=== PATIENT | female | born 1980 | race Two or more races ===

== ENCOUNTER 2019-06-11 02:06 | Emergency (ER) | payer OTHER ==
[2019-06-11 02:09] VITALS: BMI 36.3
--- NOTE | 2019-06-11 02:16 | PDOC ---
History of Present Illness - General Chief Complaint: Diarrhea Stated Complaint: ABD PAIN - History of Present Illness Initial Comments: The pt is a 38F s/p 7 days ago who presents for evaluation of several hours epigastric abdominal pain w/ associated diarrhea and nausea. She reports epigastric pain that is achy/sharp, radiated to the rest of her abdomen, is constant, and not exacerbated or alleviated by anything she can identify. She reports several episodes of NB diarrhea. Endorses leg swelling that has been present since labor. Endorses vaginal discharge since delivery that has been improving. Denies COLE, vision changes, fevers, dysuria, hematuria, or changes in sensation. She reports a history of HTN during for which she has not taken meds. PMH: Asthma SH: Denies x3 06/11/19 02:50 Past History - Past Medical History Allergies/Adverse Reactions: Allergies Allergy/AdvReac Type Severity Reaction Status Date / Time Sulfa (Sulfonamide Allergy Verified 06/11/19 02:09 Antibiotics) Asthma: Yes COPD: No - Psycho Social/Smoking Cessation Hx Smoking History: Never smoked Review of Systems - Review of Systems Able to Perform ROS?: Yes Comments:: GENERAL/CONSTITUTIONAL: No fever or chills. No weakness HEAD, EYES, EARS, NOSE AND THROAT: No change in vision. No change in hearing. No sore throat CARDIOVASCULAR: No chest pain or shortness of breath RESPIRATORY: Denies cough, hemoptysis GASTROINTESTINAL: per HPI GENITOURINARY: No dysuria, frequency, or change in urination MUSCULOSKELETAL: No joint or muscle swelling or pain. No neck or back pain SKIN: No rash NEUROLOGIC: No headache, vertigo, loss of consciousness, or change in strength/sensation ENDOCRINE: No increased thirst. No abnormal weight change HEMATOLOGIC/LYMPHATIC: No anemia, easy bleeding, or history of blood clots ALLERGIC/IMMUNOLOGIC: No hives or skin allergy 06/11/19 02:15 Is the patient limited Chinese proficient: No *Physical Exam - Vital Signs Last Vital Signs Temp Pulse Resp BP Pulse Ox 98.3 F 86 18 162/81 100 06/11/19 02:07 06/11/19 02:07 06/11/19 02:07 06/11/19 02:07 06/11/19 02:07 - Physical Exam GENERAL: Awake, alert, and oriented to person/place/time HEAD: No signs of trauma, normocephalic, atraumatic EYES: PERRLA, EOMI, sclera anicteric, conjunctiva clear ENT: Hearing grossly normal, nares patent, oropharynx clear without exudates. Moist mucosa LUNGS: No distress, speaks in full sentences, clear to auscultation bilaterally HEART: Regular rate and rhythm, normal S1 and S2, no murmurs appreciated, peripheral pulses normal and equal bilaterally ABDOMEN: Soft, protuberant, epigastric/generalized TTP w/ guarding w/o rebound, normoactive bowel sounds EXTREMITIES: Moves all extremities independently; BLE edema to distal 1/3 felipe NEUROLOGICAL: Cranial nerves II through XII grossly intact. Normal speech, no focal sensorimotor deficits SKIN: Warm, Dry 06/11/19 02:15 ED Treatment Course - LABORATORY CBC & Chemistry Diagram: 06/11/19 02:50 06/11/19 02:50 - RADIOLOGY Radiograph Interpretation: THIS IS A PRELIMINARY REPORT FROM [facility] DATE OF SERVICE: 2019-06-11 04:48:24 EXAM: CT ABDOMEN WITH CONTRAST AND CT PELVIS WITH CONTRAST IMPRESSION: Bilateral breast skin thickening. Moderate gallbladder distention and abnormal gallbladder wall thickening pericholecystic fluid suspicious for acute cholecystitis. If clinically indicated recommend correlation with the Right Upper Quadrant Abdominal Ul trasound. Mild hepatomegaly. Small hiatal hernia. Diverticulosis. Small amount of dependent pelvic fluid may be due to infection. Heterogeneous enhancement in the fundal uterine myometrium may be due to fibroids. Mild thickening of the fundal endometrium. uterus. Mild periumbilical subcutaneous edema. Subcentimeter mesenteric lymph nodes noted. 06/11/19 06:37 Medical Decision Making - Medical Decision Making The pt is a 38F s/p 7 days ago who presents for evaluation of several hours epigastric abdominal pain w/ associated diarrhea and nausea ED Course CMP, CBC, Lipase, UA, UCx CT A&P Ofirmev, Pepcid, IVF, Reglan 06/11/19 02:54 Leukocytosis to 14.7 No anemia Lytes unremarkable No RICARDO LFTs unremarkable Lipase wnl UA w/ evidence of UTI Pt pending CT Pt feels symptoms moderately improved at this time 06/11/19 04:39 CT w/ evidence of acute emerita Will obtain RUQ US Zosyn 3.375mg IV once given Morphine 4mg IV once given for pain Pt amicable to wait for US 06/11/19 06:36 Pt signed out to Dr. Harper Pt pending US Discharge - Discharge Information Problems reviewed: Yes Clinical Impression/Diagnosis: Acute cholecystitis Abdominal pain Qualifiers: Abdominal location: epigastric Qualified Code(s): R10.13 - Epigastric pain Diarrhea Qualifiers: Diarrhea type: unspecified type Qualified Code(s): R19.7 - Diarrhea, unspecified Condition: Stable Disposition: TRANSFER ACUTE CARE/OTHER HOSP - Follow up/Referral - Patient Discharge Instructions - Post Discharge Activity
--- NOTE | 2019-06-11 02:25 | PDOC ---
Attending Attestation - Resident Resident Name: GovindMoisés bustamante - ED Attending Attestation I have performed the following: I have examined & evaluated the patient, The case was reviewed & discussed with the resident, I agree w/resident's findings & plan, Exceptions are as noted - HPI HPI: 06/11/19 07:25 See resident HPI - Physicial Exam PE: 06/11/19 07:25 Agree with documented exam - Medical Decision Making 06/11/19 07:25 38F pmh pre-eclampsia, s/p 7 days ago here with severe epigastric pain a/w nausea and diarrhea +B/L LE swelling since delivery, her BP has been about 150s/systolic since, she was told to monitor the BPs by her OB Concern for pre-eclampsia, gastroenteritis, consider emerita f/u labs, ua symptomatic tx re-eval moderate improvement in pain, focally tender abd f/u ct ap imaging consistent with possible acute emerita, f/u US +protein in urine, BP decreasing but still >140 systolic Ob eval dispo per clinical course
[2019-06-11] MEDS ORDERED: LACTATED RINGERS SOLUTION 1000 ML INFUS.BAG IV ONE (02:45)
[2019-06-11] MEDS ORDERED: METOCLOPRAMIDE HCL INJECTION 10 MG/2 ML VIAL IVPB ONE (02:45)
[2019-06-11] MEDS ORDERED: ACETAMINOPHEN 1000 MG/100 ML VIAL (NON FORMULARY) IVPB ONE (02:45)
[2019-06-11] MEDS ORDERED: FAMOTIDINE 20 MG/50 ML IVPB 20 MG/50 ML MG IVPB ONE ×2 (02:45→02:48)
[2019-06-11] MEDS ORDERED: METOCLOPRAMIDE HCL INJECTION 10 MG/2 ML VIAL ONE (02:48)
[2019-06-11] MEDS ORDERED: ACETAMINOPHEN INJECTION 100 ML IVPB ONE (02:48)
--- NOTE | 2019-06-11 03:23 | PDOC ---
*Physical Exam - Vital Signs Last Vital Signs Temp Pulse Resp BP Pulse Ox 98.3 F 86 18 162/81 100 06/11/19 02:07 06/11/19 02:07 06/11/19 02:07 06/11/19 02:07 06/11/19 02:07 ED Treatment Course - LABORATORY CBC & Chemistry Diagram: 06/11/19 02:50 06/11/19 02:50 - Medications Given in the ED: ED Medications Discontinued Medications Generic Name Dose Route Start Last Admin Trade Name [place] PRN Reason Stop Dose Admin Acetaminophen 1,000 mg 06/11/19 02:45 06/11/19 03:08 Ofirmev Injection - IVPB 06/11/19 02:46 1,000 mg ONCE ONE Administration Famotidine/Sodium Chloride 20 mg in 50 mls @ 100 mls/hr 06/11/19 02:45 06/11/19 03:08 Pepcid 20 Mg Premixed Ivpb - IVPB 06/11/19 03:14 100 mls/hr ONCE ONE Administration Lactated Ringer's 1,000 ml 06/11/19 02:45 06/11/19 03:08 Lactated Ringers Solution IV 06/11/19 02:46 1,000 ml ONCE ONE Administration Metoclopramide HCl 10 mg 06/11/19 02:45 06/11/19 03:09 Reglan Injection - IVPB 06/11/19 02:46 10 mg ONCE ONE Administration Medical Decision Making - Medical Decision Making 06/11/19 03:23 Patient seen as pre-attending with Dr. Wilcox (PGY-2) and Dr. Haji (Attending) 38 y/o female 7 days here w/acute onset of sharp epigastric pain, multiple episodes of non-bloody diarrhea. Evaluated for HTN in previous , B/L LE edema following delivery. No shortness of breath, no CP. Will evaluate for pre-eclampsia, also consider wide differential for abdominal pain including acute abdomen (acute cholecystitis, endometritis) as well as cystitis, gastroenteritis. 06/11/19 03:56 UA shows 1+ Protein, 3+ Leukocyte Esterase, 26 WBC 06/11/19 06:19 CTAP shows AGBW thickening, pericholecystic fluid and GB distention. Patient amenable to wait for RUQ U/S Zosyn (safe for ) for UTI and presumptive cholecystitis; patient to be signed out to day team. Discharge - Discharge Information Problems reviewed: Yes Clinical Impression/Diagnosis: Acute cholecystitis Abdominal pain Qualifiers: Abdominal location: epigastric Qualified Code(s): R10.13 - Epigastric pain Diarrhea Qualifiers: Diarrhea type: unspecified type Qualified Code(s): R19.7 - Diarrhea, unspecified - Follow up/Referral - Patient Discharge Instructions - Post Discharge Activity
[2019-06-11 03:51] LABS: BASO % 0.5 % (0-2.0); EOS % 2.6 % (0-4.5); HEMATOCRIT 40.8 % (32.4-45.2); HEMOGLOBIN 13.1 GM/dL (10.7-15.3); LYMPH % 11.7 % (8-40); MCH 26.4 pg (25.7-33.7); MCHC 32.2 g/dl (32.0-36.0); MEAN PLT VOLUME 9.2 fl (7.5-11.1); MONO % 3.3 % (3.8-10.2); NEUT % 81.9 % (42.8-82.8); PLATELET COUNT 240 K/MM3 (134-434); RBC 4.98 M/mm3 (3.60-5.2); RDW 16.1 % (11.6-15.6); WHITE BLOOD COUNT 14.7 K/mm3 (4.0-10.0)
[2019-06-11 03:54] LABS: EPI CELLS 0.4 /HPF (0-5/HPF); HYALINE CASTS 7 /lpf (0-8); PH,URINE 6.5 (5.0-8.0); URINE APPEARANCE CLOUDY; URINE BACTERIA 26.8 /hpf (NEGATIVE); URINE BILIRUBIN NEGATIVE (NEGATIVE); URINE COLOR YELLOW; URINE GLUCOSE (UA) NEGATIVE (NEGATIVE); URINE KETONE NEGATIVE (NEGATIVE); URINE LEUK ESTERASE 3+ (NEGATIVE); URINE NITRITE NEGATIVE (NEGATIVE); URINE PROTEIN 1+ (NEGATIVE); URINE UROBILINOGEN 0.2 mg/dL (0.2-1.0); URINE WBC 163 /hpf (0-5)
[2019-06-11 04:17] LABS: ALBUMIN 2.7 g/dl (3.4-5.0); BILIRUBIN,TOTAL 0.3 mg/dL (0.2-1); BLOOD UREA NITROGEN 14.4 mg/dL (7-18); CALCIUM 8.4 mg/dL (8.5-10.1); CREATININE 0.7 mg/dL (0.55-1.3); MAGNESIUM 1.9 mg/dL (1.8-2.4); POTASSIUM 4.1 mmol/L (3.5-5.1); TOT PROT 6.4 g/dl (6.4-8.2)
[2019-06-11] MEDS ORDERED: PIPERACILLIN/TAZOB 3.375 GM 3.375 GM in DEXTROSE 5%-WATER - 50 ML IVPB ONE (05:32)
[2019-06-11] MEDS ORDERED: morphine CARPU-JECT 4 MG/1 ML DISP.SYRIN IVPUSH ONE ×2 (05:37→07:40)
[2019-06-11] MEDS ORDERED: morphine SULFATE 4 MG/ML VIAL ONE ×2 (05:55→07:58)
[2019-06-11] MEDS ORDERED: PIPERACILLIN/TAZOB 2.25 GM 2.25 GM/50 ML BAG IVPB ONE (05:55)
--- NOTE | 2019-06-11 07:58 | PDOC ---
*Physical Exam - Vital Signs Last Vital Signs Temp Pulse Resp BP Pulse Ox 98.3 F 79 18 153/79 95 06/11/19 02:07 06/11/19 06:28 06/11/19 06:28 06/11/19 06:28 06/11/19 06:28 ED Treatment Course - LABORATORY CBC & Chemistry Diagram: 06/11/19 02:50 06/11/19 02:50 - ADDITIONAL ORDERS Additional order review: Laboratory Results 06/11/19 06/11/19 02:50 02:50 Sodium 143 Potassium 4.1 Chloride 109 H Carbon Dioxide 27 Anion Gap 7 L BUN 14.4 Creatinine 0.7 Est GFR (CKD-EPI)AfAm 126.49 Est GFR (CKD-EPI)NonAf 109.14 Random Glucose 70 L Calcium 8.4 L Magnesium 1.9 Total Bilirubin 0.3 AST 26 ALT 46 Alkaline Phosphatase 118 H Total Protein 6.4 Albumin 2.7 L Lipase 158 Urine Color Yellow Urine Appearance Cloudy Urine pH 6.5 Ur Specific [place] 1.004 L Urine Protein 1+ H Urine Glucose (UA) Negative Urine Ketones Negative Urine Blood 3+ H Urine Nitrite Negative Urine Bilirubin Negative Urine Urobilinogen 0.2 Ur Leukocyte Esterase 3+ H Urine WBC (Auto) 163 Urine Casts (Auto) 7 U Epithel Cells (Auto) 0.4 Urine Bacteria (Auto) 26.8 06/11/19 02:50 RBC 4.98 MCV 82.0 MCHC 32.2 RDW 16.1 H MPV 9.2 Neutrophils % 81.9 Lymphocytes % 11.7 Monocytes % 3.3 L Eosinophils % 2.6 Basophils % 0.5 - Medications Given in the ED: ED Medications Discontinued Medications Generic Name Dose Route Start Last Admin Trade Name Abrahamq PRN Reason Stop Dose Admin Acetaminophen 1,000 mg 06/11/19 02:45 06/11/19 03:08 Ofirmev Injection - IVPB 06/11/19 02:46 1,000 mg ONCE ONE Administration Famotidine/Sodium Chloride 20 mg in 50 mls @ 100 mls/hr 06/11/19 02:45 06/11/19 03:08 Pepcid 20 Mg Premixed Ivpb - IVPB 06/11/19 03:14 100 mls/hr ONCE ONE Administration Metronidazole 500 mg in 100 mls @ 100 mls/hr 06/11/19 05:32 06/11/19 05:53 Flagyl 500mg Premixed Ivpb - IVPB 06/11/19 06:31 Not Given ONCE ONE Piperacillin Sod/Tazobactam 50 mls @ 100 mls/hr 06/11/19 05:32 06/11/19 06:24 Sod 3.375 gm/ Dextrose IVPB 06/11/19 06:01 100 mls/hr ONCE ONE Administration Protocol Lactated Ringer's 1,000 ml 06/11/19 02:45 06/11/19 03:08 Lactated Ringers Solution IV 06/11/19 02:46 1,000 ml ONCE ONE Administration Metoclopramide HCl 10 mg 06/11/19 02:45 06/11/19 03:09 Reglan Injection - IVPB 06/11/19 02:46 10 mg ONCE ONE Administration Morphine Sulfate 4 mg 06/11/19 05:37 06/11/19 06:24 Morphine Injection - IVPUSH 06/11/19 05:38 4 mg ONCE ONE Administration Medical Decision Making - Medical Decision Making 06/11/19 07:58 signed out from PM team: 38F s/p 7 days ago c/o several hours epigastric abdominal pain w/ associated diarrhea and nausea ED course: labs, GI meds, tylenol, CT, RUQ US; zosyn, morphine CT w/ evidence of acute emerita amenable to waiting for US labs per prior section: wbc elevated UA 1+ protein, 3+ LE; s/p zosyn ALP elevated IOC CT A/P impression: FINDINGS: Mild basilar atelectasis. Bilateral breast skin thickening. Moderate gallbladder distention and abnormal gallbladder wall thickening pericholecystic fluid suspicious for acute cholecystitis. Mild hepatomegaly. Pancreas spleen and adrenal glands kidneys appear unremarkable. Small hiatal hernia. Non-oral contrast evaluation stomach small bowel and appendix appear unremarkable. No talib endicitis. Diverticulosis. Bladder appears unremarkable. Small amount of dependent pelvic fluid may be due to infection. No free air. No abscess. Heterogeneous enhancement in the fundal uterine myometrium may be due to fibroids. Mild thickening of the fundal endometrium. uterus. Mild periumbilical subcutaneous edema. Mild degenerative disc disease. Subcentimeter mesenteric lymph nodes noted. Subcentimeter groin lymph nodes noted. IMPRESSION: Bilateral breast skin thickening. Moderate gallbladder distention and abnormal gallbladder wall thickening pericholecystic fluid suspicious for acute cholecystitis. If clinically indicated recommend correlation with the Right Upper Quadrant Abdominal Ultrasound. Mild hepatomegaly. Small hiatal hernia. Diverticulosis. Small amount of dependent pelvic fluid may be due to infection. Heterogeneous enhancement in the fundal uterine myometrium may be due to fibroids. Mild thickening of the fundal endometrium. uterus. Mild periumbilical subcutaneous edema. Subcentimeter mesenteric lymph nodes noted. 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 c/s re: HTN / - recs hydralazine and Mg 06/11/19 09:37 US report reviewed - borderline GB findings pt endorsing sob - duoneb; cxr; Mg paused XFER to Rishi Discharge - Discharge Information Problems reviewed: Yes Clinical Impression/Diagnosis: Acute cholecystitis Abdominal pain Qualifiers: Abdominal location: epigastric Qualified Code(s): R10.13 - Epigastric pain Diarrhea Qualifiers: Diarrhea type: unspecified type Qualified Code(s): R19.7 - Diarrhea, unspecified Condition: Stable Disposition: TRANSFER ACUTE CARE/OTHER HOSP - Follow up/Referral - Patient Discharge Instructions - Post Discharge Activity
[2019-06-11] MEDS ORDERED: hydrALAZINE HCL 20 MG/ML VIAL IVPUSH ONE ×2 (08:30→09:40)
[2019-06-11] MEDS ORDERED: hydrALAZINE HCL 20 MG/ML VIAL ONE ×2 (08:51→09:42)
--- NOTE | 2019-06-11 09:10 | PDOC ---
*Physical Exam - Vital Signs Last Vital Signs Temp Pulse Resp BP Pulse Ox 98.3 F 78 16 154/79 95 06/11/19 02:07 06/11/19 07:50 06/11/19 07:50 06/11/19 07:50 06/11/19 07:50 ED Treatment Course - LABORATORY CBC & Chemistry Diagram: 06/11/19 02:50 06/11/19 02:50 - ADDITIONAL ORDERS Additional order review: Laboratory Results 06/11/19 06/11/19 02:50 02:50 Sodium 143 Potassium 4.1 Chloride 109 H Carbon Dioxide 27 Anion Gap 7 L BUN 14.4 Creatinine 0.7 Est GFR (CKD-EPI)AfAm 126.49 Est GFR (CKD-EPI)NonAf 109.14 Random Glucose 70 L Calcium 8.4 L Magnesium 1.9 Total Bilirubin 0.3 AST 26 ALT 46 Alkaline Phosphatase 118 H Total Protein 6.4 Albumin 2.7 L Lipase 158 Urine Color Yellow Urine Appearance Cloudy Urine pH 6.[address] [place] 1.004 L Urine Protein 1+ H Urine Glucose (UA) Negative Urine Ketones Negative Urine Blood 3+ H Urine Nitrite Negative Urine Bilirubin Negative Urine Urobilinogen 0.2 Ur Leukocyte Esterase 3+ H Urine WBC (Auto) 163 Urine Casts (Auto) 7 U Epithel Cells (Auto) 0.4 Urine Bacteria (Auto) 26.8 06/11/19 02:50 RBC 4.98 MCV 82.0 MCHC 32.2 RDW 16.1 H MPV 9.2 Neutrophils % 81.9 Lymphocytes % 11.7 Monocytes % 3.3 L Eosinophils % 2.6 Basophils % 0.5 - Medications Given in the ED: ED Medications Discontinued Medications Generic Name Dose Route Start Last Admin Trade Name Abrahamq PRN Reason Stop Dose Admin Acetaminophen 1,000 mg 06/11/19 02:45 06/11/19 03:08 Ofirmev Injection - IVPB 06/11/19 02:46 1,000 mg ONCE ONE Administration Famotidine/Sodium Chloride 20 mg in 50 mls @ 100 mls/hr 06/11/19 02:45 06/11/19 03:08 Pepcid 20 Mg Premixed Ivpb - IVPB 06/11/19 03:14 100 mls/hr ONCE ONE Administration Metronidazole 500 mg in 100 mls @ 100 mls/hr 06/11/19 05:32 06/11/19 05:53 Flagyl 500mg Premixed Ivpb - IVPB 06/11/19 06:31 Not Given ONCE ONE Piperacillin Sod/Tazobactam 50 mls @ 100 mls/hr 06/11/19 05:32 06/11/19 06:24 Sod 3.375 gm/ Dextrose IVPB 06/11/19 06:01 100 mls/hr ONCE ONE Administration Protocol Lactated Ringer's 1,000 ml 06/11/19 02:45 06/11/19 03:08 Lactated Ringers Solution IV 06/11/19 02:46 1,000 ml ONCE ONE Administration Metoclopramide HCl 10 mg 06/11/19 02:45 06/11/19 03:09 Reglan Injection - IVPB 06/11/19 02:46 10 mg ONCE ONE Administration Morphine Sulfate 4 mg 06/11/19 05:37 06/11/19 06:24 Morphine Injection - IVPUSH 06/11/19 05:38 4 mg ONCE ONE Administration Morphine Sulfate 4 mg 06/11/19 07:40 06/11/19 07:50 Morphine Injection - IVPUSH 06/11/19 07:41 4 mg ONCE ONE Administration Medical Decision Making - Critical Care Time Total Critical Care Time (minutes): 45 Critical Care Statement: The care of this patient involved high complexity decision making to prevent further life threatening deterioration of the patient's condition and/or to evaluate & treat vital organ system(s) failure or risk of failure. - Medical Decision Making 06/11/19 09:09 Patient signed out to me pending ultrasound Repeat abdominal exam demonstrates moderate to severe right upper quadrant pain with rebound Pelvic exam demonstrates pressure but no significant tenderness Patient was ordered for Zosyn overnight Patient remains persistently hypertensive despite pain management Case discussed with PICTURE COPYIST Dr. Samanta Ford We will initiate management for preeclampsia with hydralazine and IV magnesium Given our unavailability of the surgical consultation at this time patient require transfer to tertiary care center for the management of preeclampsia with evidence of a calculus cholecystitis Case discussed with Dr. Mc surgery, Dr. Mrieles ED Pt. accepted for transfer to [facility] Discharge - Discharge Information Problems reviewed: Yes Clinical Impression/Diagnosis: Acute cholecystitis Abdominal pain Qualifiers: Abdominal location: epigastric Qualified Code(s): R10.13 - Epigastric pain Diarrhea Qualifiers: Diarrhea type: unspecified type Qualified Code(s): R19.7 - Diarrhea, unspecified Condition: Stable - Admission No - Follow up/Referral - Patient Discharge Instructions - Post Discharge Activity
[2019-06-11] MEDS ORDERED: ALBUTEROL SO4 2.5/IPRATROPIUM 0.5 INH SOL 3 ML VIAL.NEB. NEB ONE ×2 (09:28)
[2019-06-11 09:40] VITALS: TEMP 99.9
[2019-06-11 11:27] VITALS: BP 154/82; PULSE 86
[2019-06-11 11:45] LABS: URINE RBC 3.8 /hpf (0-4)
== END 2019-06-11 10:10 | disposition short-term general hospital (02) ==
LOC: JER 02:06
PROC: 3E0337Z Introduction of Electrolytic and Water Balance Substance into Peripheral Vein, Percutaneous Approach (ICD-10-PCS; principal; 2019-06-11)
PROC: 3E033NZ Introduction of Analgesics, Hypnotics, Sedatives into Peripheral Vein, Percutaneous Approach (ICD-10-PCS; 2019-06-11)
PROC: 3E033GC Introduction of Other Therapeutic Substance into Peripheral Vein, Percutaneous Approach (ICD-10-PCS; 2019-06-11)
PROC: 3E03329 Introduction of Other Anti-infective into Peripheral Vein, Percutaneous Approach (ICD-10-PCS; 2019-06-11)
DX: R10.13 Epigastric pain (principal); R19.7 Diarrhea, unspecified; Z88.2 Allergy status to sulfonamides; K81.0 Acute cholecystitis; J45.909 Unspecified asthma, uncomplicated
CPT/HCPCS: 36415; 71045-TC-FY; 74177-TC; 76705-TC; 80053; 81003; 83690; 83735; 85025; 87086; 87186; 99285-25; J0131